=== PATIENT | female | born 1950 | race Caucasian/White ===

== ENCOUNTER → 2016-10-07 19:45 | Outpatient (CLI) | payer MEDICARE, OTHER ==
[2016-04-20 10:31] VITALS: BMI 30.5
[~2016-10-07 19:45] MED LIST: ACIDOPHILUS LAC1 CAP PO; ASPIRIN 81 MG E81 MG PO; BCG; CO Q-10100 MG PO; GLUCOPHAGE500 MG PO; LAMISIL250 MG PO; LIPITOR40 MG PO; LISINOPRIL5 MG PO; LOVAZA1 G PO; MULTIPLE VITAMI1 TA1 PO; NEXIUM20 MG PO; NORVASC2.5 MG PO; NORVASC5 MG PO; PREDNISONE20 MG; PRILOSEC10 MG PO; SYNTHROID75 MCG PO; VITAMIN B-1000 MCG/M IM; VITAMIN D31000 UNIT PO
== END | disposition home or self-care (01) ==
LOC: D.SLEEP 19:45
DX: G47.33 Obstructive sleep apnea (adult) (pediatric) (principal)

== ENCOUNTER → 2016-10-10 08:23 | Outpatient (CLI) | payer MEDICARE, OTHER ==
[2016-04-20 10:31] VITALS: BMI 30.5
[2016-10-10 09:31] LABS: ALBUMIN 3.4 g/dL (3.4-5.0); BILIRUBIN - DIRECT 0.06 mg/dL (0.00-0.30); BILIRUBIN - INDIRECT 0.28 mg/dL (0.00-1.00); BILIRUBIN - TOTAL 0.34 mg/dL (0.2-1.3); PROTEIN - SERUM 7.3 g/dL (6.4-8.2)
== END | disposition home or self-care (01) ==
LOC: D.US 09-20 09:30 → D.LAB 09-20 09:30 → D.US 10-04 09:00 → D.LAB 10-04 10:00 → D.US 08:23
PROVIDERS: Internal Medicine Gastroenterology
DX: K76.0 Fatty (change of) liver, not elsewhere classified (principal)

== ENCOUNTER → 2017-04-17 10:02 | Outpatient (CLI) | payer MEDICARE, OTHER ==
[2016-04-20 10:31] VITALS: BMI 30.5
[2017-04-17 10:49] LABS: ALBUMIN 3.4 g/dL (3.4-5.0); BILIRUBIN - INDIRECT 0.25 mg/dL (0.00-1.00); BILIRUBIN - TOTAL 0.28 mg/dL (0.2-1.3); PROTEIN - SERUM 7.6 g/dL (6.4-8.2)
[2017-04-17 10:52] LABS: BILIRUBIN - DIRECT 0.03 mg/dL (0.00-0.30)
== END | disposition home or self-care (01) ==
LOC: D.US 04-12 10:00 → D.LAB 04-12 10:45
PROVIDERS: Internal Medicine Gastroenterology
DX: K76.0 Fatty (change of) liver, not elsewhere classified (principal)

== ENCOUNTER 2017-06-15 15:12 | Emergency (ER) | payer MEDICARE, OTHER ==
[2016-04-20 10:31] VITALS: BMI 30.5
[2017-06-15 16:50] LABS: BASOPHILS 0.5 % (0-2); HEMATOCRIT 43.6 % (36.0-48.0); HEMOGLOBIN 14.4 g/dL (12-16); IMMATURE GRANULOCYTES 0.2 % (0-5); MCH 28.9 pg (26.0-34.0); MCV 87.6 fL (80.0-100.0); MEAN PLATELET VOLUME 10.2 fL (7.4-10.4); MONOCYTES 7.1 % (2-11); NEUTROPHILS 59.2 % (40-80); RBC 4.98 10x6/uL (4.00-5.40); RDW 13.9 % (11.5-14.5); WBC 9.6 10x3/uL (4.8-10.8)
[2017-06-15 16:51] LABS: PLATELET COUNT 262 10x3/uL (130-400)
[2017-06-15 17:01] LABS: INR 1.01 (0.85-1.17); PROTIME 13.2 SECONDS (11.6-15.0)
[2017-06-15 17:07] LABS: ALBUMIN 3.5 g/dL (3.4-5.0); ANION GAP 11.9 mmol/L (8-16); BILIRUBIN - TOTAL 0.25 mg/dL (0.2-1.3); CARBON DIOXIDE 27.5 mmol/L (21.0-32.0); CREATININE - SERUM 0.9 mg/dL (0.6-1.3); POTASSIUM - SERUM 3.4 mmol/L (3.5-5.1); PROTEIN - SERUM 7.8 g/dL (6.4-8.2)
== END 2017-06-15 18:43 | disposition home or self-care (01) ==
LOC: D.ER 15:12
PROVIDERS: Nurse Practitioner Family
DX: J01.90 Acute sinusitis, unspecified (principal); J44.9 Chronic obstructive pulmonary disease, unspecified; E11.9 Type 2 diabetes mellitus without complications

== ENCOUNTER → 2017-09-19 09:19 | Outpatient (CLI) | payer MEDICARE, OTHER ==
[2016-04-20 10:31] VITALS: BMI 30.5
[2017-09-19 10:16] LABS: ALBUMIN 3.3 g/dL (3.4-5.0); BILIRUBIN - DIRECT 0.08 mg/dL (0.00-0.30); BILIRUBIN - INDIRECT 0.25 mg/dL (0.00-1.00); BILIRUBIN - TOTAL 0.33 mg/dL (0.2-1.3); PROTEIN - SERUM 7.4 g/dL (6.4-8.2)
== END | disposition home or self-care (01) ==
LOC: D.LAB 09:19 → D.US 09:30 → D.LAB 09:30 → D.US 10:00
PROVIDERS: Internal Medicine Gastroenterology
DX: K76.0 Fatty (change of) liver, not elsewhere classified (principal)

== ENCOUNTER → 2017-10-16 10:14 | Outpatient (CLI) | payer MEDICARE, OTHER ==
[2016-04-20 10:31] VITALS: BMI 30.5
== END | disposition home or self-care (01) ==
LOC: D.CT 10-14 10:30
DX: R07.9 Chest pain, unspecified (principal); R10.9 Unspecified abdominal pain; R11.2 Nausea with vomiting, unspecified; R19.7 Diarrhea, unspecified